=== PATIENT | female | born 1985 | race African-American/Black ===

== ENCOUNTER 2020-09-10 09:21 | Emergency (ER) | payer MEDICAID ==
[~2020-09-10] VITALS: Ht 165.1 cm; Wt 73.0 kg
[2020-09-10] MEDS ORDERED: ACETAMINOPHEN 500MG TABLET PO ONE (10:00)
[2020-09-10 11:37] VITALS: BP 118/72
== END 2020-09-10 11:38 | disposition home or self-care (01) ==
LOC: ER 09:31
DX: S80.01XA Contusion of right knee, initial encounter (principal); W18.39XA Other fall on same level, initial encounter; Y93.89 Activity, other specified; Y92.89 Other specified places as the place of occurrence of the external cause; Y99.8 Other external cause status
CPT/HCPCS: 73562; 99283